=== PATIENT | female | born 1945 | race Caucasian/White ===

== ENCOUNTER 2018-12-19 16:24 | Emergency (ER) | payer MEDICARE ==
[2018-12-19 18:51] LABS: Albumin 4.5 g/dL (3.5-5.0); INR 0.9 (<1.2); Partial Thromboplastin Time 22.1 sec (22.0-30.0); Potassium 5.1 mmol/L (3.5-5.1); Prothrombin Time 9.9 sec (9.0-12.0); Total Bilirubin 0.5 mg/dL (0.2-1.3); Total Protein 7.3 g/dL (6.3-8.2)
[2018-12-19 19:10] LABS: Basophils # (A) 0.1 k/uL (0-0.2); Basophils % (A) 1 %; Eosinophils # (A) 0.1 k/uL (0-0.7); Eosinophils % (A) 1 %; HCT 37.1 % (34.0-46.0); HGB 12.4 gm/dL (11.4-16.0); Lymphocytes # (A) 4.9 k/uL (1.0-4.8); Lymphocytes % (A) 44 %; MCH 30.3 pg (25.0-35.0); MCHC 33.4 g/dL (31.0-37.0); MCV 90.8 fL (80.0-100.0); Mean Platelet Volume 8.5; Monocytes # (A) 0.7 k/uL (0-1.0); Monocytes % (A) 6 %; Neutrophils # (A) 5.4 k/uL (1.3-7.7); Neutrophils % (A) 47 %; Platelet Count 222 k/uL (150-450); RBC 4.09 m/uL (3.80-5.40); RDW 13.9 % (11.5-15.5); WBC 11.3 k/uL (3.8-10.6)
[2018-12-19] MEDS ORDERED: SODIUM CHLORIDE 0.9% 500 ML 500 ML IV STA (19:39)
[2018-12-19 20:06] LABS: Appearance,Urine Cloudy (Clear); Bacteria,Urine Occasional /hpf; Bilirubin,Urine Negative (Negative); Blood,Urine Negative (Negative); Color,Urine Light Yellow; Glucose,Urine (UA) Negative (Negative); Ketones,Urine Negative (Negative); Leukocyte Esterase,Urine Large (Negative); Mucus,Urine Rare /hpf; Nitrite,Urine Positive (Negative); PH, Urine 5.5 (5.0-8.0); Protein,Urine Negative (Negative); RBC,Urine 2 /hpf (0-5); Specific Gravity,Urine 1.007 (1.001-1.035); Squamous Epithelial Cell,Urine <1 /hpf (0-4); Urobilinogen,Urine <2.0 mg/dL (<2.0); WBC,Urine 25 /hpf (0-5)
[2018-12-19 20:58] VITALS: PULSE 69; TEMP 98.4
--- NOTE | 2018-12-19 21:30 | XR ---
EXAMINATION TYPE: XR chest 2V DATE OF EXAM: 12/19/2018 COMPARISON: None HISTORY: 73-year-old female with abdominal pain TECHNIQUE: AP and lateral views FINDINGS: Heart upper limits of normal in size. Mild diffuse interstitial prominence and peribronchial cuffing. Hyperinflation. No consolidation or pleural effusion. IMPRESSION: COPD. No definite acute process seen.
--- NOTE | 2018-12-19 21:33 | CT ---
EXAMINATION TYPE: CT brain ludmila austin con DATE OF EXAM: 12/19/2018 COMPARISON: None HISTORY: 73-year-old female Dizziness. CT DLP: 1238.6. mGycm Automated exposure control for dose reduction was used. Technique: Examination of the head was done in axial plane without intravenous contrast. Coronal and sagittal reconstructions performed. CT of the cervical spine was obtained in axial plane without intravenous injection of contrast mater ial. Coronal and sagittal reformatted images were obtained from the axial views for evaluation of f ractures, spinal alignment and canal. FINDINGS: Head: There is no evidence of acute intracranial hemorrhage, acute ischemic changes, mass, mass-effect, or extra-axial fluid collection. There is no effacement of cerebral sulci or basal subarachnoid cister ns. There is no hydrocephalus. There is no midline shift. Gordon-white matter distinction is preserv ed. Atherosclerotic calcifications within the carotid siphons. Partially empty sella. Paranasal sinuses and mastoid air cells are well pneumatized. Orbits and globes are intact. Cervical spine: No craniocervical junction abnormality, predental space widening, or prevertebral soft tissue swellin g. Preserved alignment of the cervical spine with straightening of the normal cervical lordosis. Moderate disc/endplate degenerative change particularly at C5-C6 and C6-C7 with disc osteophyte compl ex mildly narrowing the spinal canal here. No acute fracture of the cervical spine. Scattered facet and uncovertebral joint degenerative change. On the right at C5-C6, there is a moderate foraminal stenosis. At C6/C7 on both sides, there are moderate neuroforaminal stenoses. 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 Sagittal and coronal reformatted images confirm above findings. COMBINED IMPRESSION: 1. No acute intracranial abnormality seen. 2. No acute fracture or malalignment of the cervical spine. Moderate spondylotic change C5-C6 and C6- C7. 3. 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
--- NOTE | 2018-12-19 21:40 | CT ---
EXAMINATION TYPE: CT abdomen pelvis w con DATE OF EXAM: 12/19/2018 COMPARISON: NONE HISTORY: 73-year-old female with abdominal and back pain. TECHNIQUE: Contiguous axial scanning of the abdomen and pelvis following administration of 100 ml Iso darius 300 IV contrast. Delayed images through the kidneys and coronal/sagittal reconstructions perform ed. CT DLP: 535.3 mGycm Automated exposure control for dose reduction was used. FINDINGS: LUNG BASES: Tiny hiatal hernia. No significant abnormality is appreciated. LIVER/GB: Small amount of focal fat along the falciform ligament. Small area of capsular retraction a nd 5 mm hypodensity peripheral inferior right liver lobe, axial image 22 may represent some scarring. Portal venous system is patent. No biliary ductal dilatation. Gallbladder unremarkable. PANCREAS: No significant abnormality is seen. SPLEEN: No significant abnormality is seen. ADRENALS: No significant abnormality is seen. KIDNEYS: Mild bilateral pelvicaliectasis and ureteric prominence. Contrast is seen excreting on the d elayed kidney images. VASCULATURE: Moderate atherosclerotic calcifications without aneurysm. REPRODUCTIVE ORGANS: Marked distention of the urinary bladder up to 10.2 cm wide and 10.7 cm cranioca udal. Pelvic phleboliths. Uterus surgically absent. The distended bladder fills the pelvis. BOWEL: Mild stool burden. No dilated small bowel. No pericolonic inflammatory change seen. There is s hort segment circumferential wall thickening at the splenic flexure which may be secondary to underdi stention. BONES: Mild degenerative changes SI joints. Multilevel degenerative disc disease and hypertrophic fac et arthropathy throughout the lumbar spine. Grade 1 retrolisthesis at L2-L3. IMPRESSION: 1. MARKED DISTENTION OF THE URINARY BLADDER FILLING THE PELVIS UP TO 10.2 CM WIDE. CORRELATE TO ENSUR E THAT THIS REPRESENTS VOLUNTARY RETENTION. 2. MILD BILATERAL PELVICALIECTASIS LIKELY A PRODUCT OF THE MARKED BLADDER DISTENTION. 3. SMALL AREA OF CAPSULAR RETRACTION AND A 5 MM HYPODENSITY PERIPHERAL INFERIOR RIGHT LIVER LOBE COUL D REPRESENT AN AREA OF SCARRING. CORRELATE WITH CA 19-9 LEVELS A PRECAUTIONARY MEASURE AND 3-6 MON TH FOLLOW-UP CONTRAST ENHANCED CT TO ENSURE STABILITY.
[2018-12-19] MEDS ORDERED: hydrALAZINE HCL 20 MG/ML 1 ML VIAL IVP STA (21:52)
[2018-12-19] MEDS ORDERED: cefTRIAXone IN SWFI 1,000 MG/10 ML SYRINGE IVP STA (21:56)
--- NOTE | 2018-12-19 22:08 | ED ---
General Adult HPI - General Chief complaint: Syncope Stated complaint: sorethroat, hands cramping Time Seen by Provider: 12/19/18 18:41 Source: patient, RN notes reviewed, old records reviewed Mode of arrival: ambulatory Limitations: no limitations - History of Present Illness Initial comments: 73-year-old female patient with past history of irritable bowel syndrome, lupus, GERD, COPD presents ED with multiple complaints. Patient reports that she gets lightheaded at times when she stands up or while walking. Patient force that she has had multiple syncopal episodes over the past year, she reports that she has been evaluated in the ED after A syncopal episodes. Last fall was approximately 3 weeks ago and she was evaluated [facility]. She also reports complaint of recurrent abdominal pain. Patient reports that: The pain is in her suprapubic region. Patient also states that she has had multiple evaluations for this at [place] or local hospital, all which have been normal. Patient also complains of a mild sore throat and approximately 2 months of waxing and waning cough. Patient states that this has been ongoing since she was treated inpatient for pneumonia. Patient denies any chest pain or shortness of breath. Patient denies any fevers or chills, denies any other complaints at this time. Systemic: Pt denies fatigue, fever/chills, rash. Pt denies weakness, night sweats, weight loss. Neuro: Pt denies headache, visual disturbances, syncope or pre-syncope. HEENT: Pt denies ocular discharge or irritation, otalgia, rhinorrhea, pharyngitis or notable lymphadenopathy. Cardiopulmonary: Pt denies chest pain, heart palpitations, dyspnea on exertion. Abdominal/GI: Pt denies n/v/d. : Pt denies dysuria, burning w/ urination, frequency/urgency. Denies new onset urinary or bowel incontinence. MSK: Pt denies myalgia, loss of strength or function in extremities. Neuro: Pt denies new onset weakness, paresthesias. - Related Data Home Medications Medication Instructions Recorded Confirmed ALPRAZolam [Xanax] 1 mg PO HS 12/19/18 12/19/18 Diclofenac Sodium Gel [Voltaren 2 gm TOPICAL DAILY PRN 12/19/18 12/19/18 Gel] Multivit-Min/Iron/Folic/Lutein 1 tab PO DAILY 12/19/18 12/19/18 [Centrum Silver Women Tablet] [place] Xl 1 tab PO DAILY 12/19/18 12/19/18 Omeprazole 20 mg PO DAILY 12/19/18 12/19/18 Tetrahydrozoline 0.05% Ophth 1 drop BOTH EYES QID PRN 12/19/18 12/19/18 [Visine Eye Drops] Vitamin B Complex 1 cap PO DAILY 12/19/18 12/19/18 Vitamin E (Dl,Tocopheryl Acet) 400 unit PO DAILY 12/19/18 12/19/18 [Vitamin E] chlordiazePOXIDE/CLIDINIUM BR 1 cap PO TID 12/19/18 12/19/18 [Librax] Previous Rx's Medication Instructions Recorded Cephalexin [Keflex] 500 mg PO Q12HR 10 Days cap 12/19/18 Allergies Allergy/AdvReac Type Severity Reaction Status Date / Time No Known Allergies Allergy Verified 12/19/18 19:57 Review of Systems ROS Statement: Those systems with pertinent positive or pertinent negative responses have been documented in the HPI. ROS Other: All systems not noted in ROS Statement are negative. Past Medical History Past Medical History: GERD/Reflux Additional Past Medical History / Comment(s): IBS, ISCHEMIC COLITIS, LUPUS, History of Any Multi-Drug Resistant Organisms: None Reported Past Surgical History: Hysterectomy Additional Past Surgical History / Comment(s): BLADDER SLING Past Psychological History: No Psychological Hx Reported Smoking Status: Former smoker Past Alcohol Use History: None Reported Past Drug Use History: None Reported General Exam - General Exam Comments Initial Comments: Constitutional: NAD, AOX3, Pt has pleasant affect. HEENT: NC/AT, trachea midline, neck supple, no lymphadenopathy. Posterior pharynx non erythematous, without exudates. External ears appear normal, without discharge. Mucous membranes moist. Eyes PERRLA, EOM intact. There is no scleral icterus. No pallor noted. Cardiopulmonary: RRR, no murmurs, rubs or gallops, no JVD noted. Lungs CTAB in anterior and posterior andrews. No peripheral edema. Abdominal exam: Abdomen soft and non-distended. Abdomen mildly tender to palpation in suprapubic region. No other raul of abdominal tenderness. Bowel sounds active in LLQ. No hepatosplenomegaly. No ecchymosis Neuro: CN II-XII intact. No nuchal rigidity. No raccon eyes, no de la cruz sign, no hemotympanum. No cervical spinal tenderness. NIH 0. MSK: No posterior calf tenderness bilaterally, homans sign negative bilaterally. Posterior tibialis and radial pulse +2 bilaterally. Sensation intact in upper and lower extremities. Full active ROM in upper and lower extremities, 5/5 stregnth. Limitations: no limitations Course Vital Signs 12/19/18 12/19/18 12/19/18 17:39 20:00 23:00 Temperature 98.5 F 98.4 F Pulse Rate 82 69 69 Respiratory 16 14 18 Rate Blood Pressure 184/94 189/98 170/89 O2 Sat by Pulse 97 98 96 Oximetry Medical Decision Making - Medical Decision Making 73-year-old female patient with past history of irritable bowel syndrome, lupus, GERD, COPD presents ED with multiple complaints. Patient reports that she gets lightheaded at times when she stands up or while walking. Patient force that she has had multiple syncopal episodes over the past year, she reports that she has been evaluated in the ED after A syncopal episodes. Last fall was approximately 3 weeks ago and she was evaluated [facility]. She also reports complaint of recurrent abdominal pain. Patient reports that: The pain is in her suprapubic region. Patient also states that she has had multiple evaluations for this at [place] or local hospital, all which have been normal. Patient also complains of a mild sore throat and approximately 2 months of waxing and waning cough. Patient states that this has been ongoing since she was treated inpatient for pneumonia. Patient denies any chest pain or shortness of breath. Patient denies any fevers or chills, denies any other complaints at this time. Patient vital signs displayed mild hypertension. Physical exam displayed mild suprapubic abdominal pain. Laboratory investigations revealed mild leukocytosis of 13.3. Coagulation studies within normal limits. Chemistries revealed mild hyponatremia at 1:30, mildly elevated BUN of 27. Otherwise within normal limits. Lactic acid 0.8. Lipase 216. Troponin negative. UA slightly GI tract infection. Influenza and group A strep negative. CT of brain and cervical spine displayed no acute intracranial process. No acute fracture or malalignment of the cervical spine. Mild aneurysmal upper descending thoracic aorta at 3.2. Chest x-ray revealed no acute process, COPD. CT abdomen and pelvis displayed marked distention of the urinary bladder/ small area of Retraction a 5 Mm Hypodensity Peripheral Anterior Right Liver Lobe There Is an Area of Scarring, Follow-Up Outpatient for Rule Out . EKG did not display any acute process. Patient will be treated for urinary tract infection, administered 1 g Rocephin ED, will be discharged with Keflex. Family history taking revealed that patient was prior on hyperten sive drugs and a single episode from low blood pressure. Patient will follow-up with primary care provider for blood pressure management. Patient will follow up with primary care provider for further evaluation of liver and thoracic aorta. Patient will return to ER immediately if condition worsens in any way. Case discussed in depth with with Dr. Dewitt. - Lab Data Result diagrams: 12/19/18 18:25 12/19/18 18:25 Lab Results 12/19/18 12/19/18 12/19/18 Range/Units 18:25 18:25 18:25 WBC 11.3 H (3.8-10.6) k/uL RBC 4.09 (3.80-5.40) m/uL Hgb 12.4 (11.4-16.0) gm/dL Hct 37.1 (34.0-46.0) % MCV 90.8 (80.0-100.0) fL MCH 30.3 (25.0-35.0) pg MCHC 33.4 (31.0-37.0) g/dL RDW 13.9 (11.5-15.5) % Plt Count 222 (150-450) k/uL Neutrophils % 47 % Lymphocytes % 44 % Monocytes % 6 % Eosinophils % 1 % Basophils % 1 % Neutrophils # 5.4 (1.3-7.7) k/uL Lymphocytes # 4.9 H (1.0-4.8) k/uL Monocytes # 0.7 (0-1.0) k/uL Eosinophils # 0.1 (0-0.7) k/uL Basophils # 0.1 (0-0.2) k/uL PT 9.9 (9.0-12.0) sec INR 0.9 (<1.2) APTT 22.1 (22.0-30.0) sec Sodium 130 L (137-145) mmol/L Potassium 5.1 (3.5-5.1) mmol/L Chloride 93 L (98-107) mmol/L Carbon Dioxide 28 (22-30) mmol/L Anion Gap 9 mmol/L BUN 27 H (7-17) mg/dL Creatinine 1.04 (0.52-1.04) mg/dL Est GFR (CKD-EPI)AfAm 61 (>60 ml/min/1.73 sqM) Est GFR (CKD-EPI)NonAf 53 (>60 ml/min/1.73 sqM) Glucose 84 (74-99) mg/dL Plasma Lactic Acid Sidney (0.7-2.0) mmol/L Calcium 10.0 (8.4-10.2) mg/dL Total Bilirubin 0.5 (0.2-1.3) mg/dL AST 20 (14-36) U/L ALT 19 (9-52) U/L Alkaline Phosphatase 43 (38-126) U/L Troponin I (0.000-0.034) ng/mL Total Protein 7.3 (6.3-8.2) g/dL Albumin 4.5 (3.5-5.0) g/dL Lipase (23-300) U/L Urine Color Urine Appearance (Clear) Urine pH (5.0-8.0) Ur Specific [place] (1.001-1.035) Urine Protein (Negative) Urine Glucose (UA) (Negative) Urine Ketones (Negative) Urine Blood (Negative) Urine Nitrite (Negative) Urine Bilirubin (Negative) Urine Urobilinogen (<2.0) mg/dL Ur Leukocyte Esterase (Negative) Urine RBC (0-5) /hpf Urine WBC (0-5) /hpf Urine WBC Clumps (None) /hpf Ur Squamous Epith Cells (0-4) /hpf Urine Bacteria (None) /hpf Urine Mucus (None) /hpf Influenza Type A RNA (Not Detectd) Influenza Type B (PCR) (Not Detectd) Group A Strep Rapid (Negative) 12/19/18 12/19/18 12/19/18 Range/Units 18:25 19:52 20:13 WBC (3.8-10.6) k/uL RBC (3.80-5.40) m/uL Hgb (11.4-16.0) gm/dL Hct (34.0-46.0) % MCV (80.0-100.0) fL MCH (25.0-35.0) pg MCHC (31.0-37.0) g/dL RDW (11.5-15.5) % Plt Count (150-450) k/uL Neutrophils % % Lymphocytes % % Monocytes % % Eosinophils % % Basophils % % Neutrophils # (1.3-7.7) k/uL Lymphocytes # (1.0-4.8) k/uL Monocytes # (0-1.0) k/uL Eosinophils # (0-0.7) k/uL Basophils # (0-0.2) k/uL PT (9.0-12.0) sec INR (<1.2) APTT (22.0-30.0) sec Sodium (137-145) mmol/L Potassium (3.5-5.1) mmol/L Chloride (98-107) mmol/L Carbon Dioxide (22-30) mmol/L Anion Gap mmol/L BUN (7-17) mg/dL Creatinine (0.52-1.04) mg/dL Est GFR (CKD-EPI)AfAm (>60 ml/min/1.73 sqM) Est GFR (CKD-EPI)NonAf (>60 ml/min/1.73 sqM) Glucose (74-99) mg/dL Plasma Lactic Acid Sidney (0.7-2.0) mmol/L Calcium (8.4-10.2) mg/dL Total Bilirubin (0.2-1.3) mg/dL AST (14-36) U/L ALT (9-52) U/L Alkaline Phosphatase (38-126) U/L Troponin I <0.012 (0.000-0.034) ng/mL Total Protein (6.3-8.2) g/dL Albumin (3.5-5.0) g/dL Lipase (23-300) U/L Urine Color Light Yellow Urine Appearance Cloudy H (Clear) Urine pH 5.5 (5.0-8.0) Ur Specific [place] 1.007 (1.001-1.035) Urine Protein Negative (Negative) Urine Glucose (UA) Negative (Negative) Urine Ketones Negative (Negative) Urine Blood Negative (Negative) Urine Nitrite Positive H (Negative) Urine Bilirubin Negative (Negative) Urine Urobilinogen <2.0 (<2.0) mg/dL Ur Leukocyte Esterase Large H (Negative) Urine RBC 2 (0-5) /hpf Urine WBC 25 H (0-5) /hpf Urine WBC Clumps Few H (None) /hpf Ur Squamous Epith Cells <1 (0-4) /hpf Urine Bacteria Occasional H (None) /hpf Urine Mucus Rare H (None) /hpf Influenza Type A RNA Not Detected (Not Detectd) Influenza Type B (PCR) Not Detected (Not Detectd) Group A Strep Rapid (Negative) 12/19/18 12/19/18 12/19/18 Range/Units 20:13 20:26 20:26 WBC (3.8-10.6) k/uL RBC (3.80-5.40) m/uL Hgb (11.4-16.0) gm/dL Hct (34.0-46.0) % MCV (80.0-100.0) fL MCH (25.0-35.0) pg MCHC (31.0-37.0) g/dL RDW (11.5-15.5) % Plt Count (150-450) k/uL Neutrophils % % Lymphocytes % % Monocytes % % Eosinophils % % Basophils % % Neutrophils # (1.3-7.7) k/uL Lymphocytes # (1.0-4.8) k/uL Monocytes # (0-1.0) k/uL Eosinophils # (0-0.7) k/uL Basophils # (0-0.2) k/uL PT (9.0-12.0) sec INR (<1.2) APTT (22.0-30.0) sec Sodium (137-145) mmol/L Potassium (3.5-5.1) mmol/L Chloride (98-107) mmol/L Carbon Dioxide (22-30) mmol/L Anion Gap mmol/L BUN (7-17) mg/dL Creatinine (0.52-1.04) mg/dL Est GFR (CKD-EPI)AfAm (>60 ml/min/1.73 sqM) Est GFR (CKD-EPI)NonAf (>60 ml/min/1.73 sqM) Glucose (74-99) mg/dL Plasma Lactic Acid Sidney 0.8 (0.7-2.0) mmol/L Calcium (8.4-10.2) mg/dL Total Bilirubin (0.2-1.3) mg/dL AST (14-36) U/L ALT (9-52) U/L Alkaline Phosphatase (38-126) U/L Troponin I (0.000-0.034) ng/mL Total Protein (6.3-8.2) g/dL Albumin (3.5-5.0) g/dL Lipase 216 (23-300) U/L Urine Color Urine Appearance (Clear) Urine pH (5.0-8.0) Ur Specific [place] (1.001-1.035) Urine Protein (Negative) Urine Glucose (UA) (Negative) Urine Ketones (Negative) Urine Blood (Negative) Urine Nitrite (Negative) Urine Bilirubin (Negative) Urine Urobilinogen (<2.0) mg/dL Ur Leukocyte Esterase (Negative) Urine RBC (0-5) /hpf Urine WBC (0-5) /hpf Urine WBC Clumps (None) /hpf Ur Squamous Epith Cells (0-4) /hpf Urine Bacteria (None) /hpf Urine Mucus (None) /hpf Influenza Type A RNA (Not Detectd) Influenza Type B (PCR) (Not Detectd) Group A Strep Rapid Negative (Negative) Disposition Clinical Impression: UTI (urinary tract infection) Disposition: HOME SELF-CARE Condition: Stable Instructions (If sedation given, give patient instructions): Urinary Tract Infection in Women (ED) Additional Instructions: Patient to adhere to previously discussed treatment plan and will take medication(s) as directed. Patient to follow up with PCP in 1-2 days. Patient to return to ED if symptoms do not improve. Follow-up with primary care provider tomorrow for continued evaluation and follow-up of liver and thoracic aorta. Prescriptions: Cephalexin [Keflex] 500 mg PO Q12HR 10 Days cap Is patient prescribed a controlled substance at d/c from ED?: No Referrals: Efraín Dietrich DO [Primary Care Provider] - 1-2 days
[2018-12-19 23:02] VITALS: BP 170/89; RESP 18
== END 2018-12-19 23:00 | disposition home or self-care (01) ==
LOC: EC 16:24
DX: N39.0 Urinary tract infection, site not specified (principal); R10.9 Unspecified abdominal pain; R42 Dizziness and giddiness; R55 Syncope and collapse; R05 Cough; R93.89 Abnormal findings on diagnostic imaging of other specified body structures; E87.1 Hypo-osmolality and hyponatremia; R79.89 Other specified abnormal findings of blood chemistry; K21.9 Gastro-esophageal reflux disease without esophagitis; K58.9 Irritable bowel syndrome, unspecified; Z79.899 Other long term (current) drug therapy; Z90.710 Acquired absence of both cervix and uterus
CPT/HCPCS: 36415; 93005; 80053; 83605; 83690; 84484; 85025; 85610; 85730; 81001; 87086; 87081; 87430; 87502; 71046; 72125; 70450; 74177; 99285; 96374; 96361 ×2; J0696; Q9967; 87077; 87186